=== PATIENT | female | born 1975 | race Caucasian/White ===

== ENCOUNTER → 2017-02-13 | Outpatient (CLI) | payer BC | END | disposition home or self-care (01) | LOC: LABWHC1 12:32 | PROVIDERS: ATTEND Pediatrics | DX: K90.0 Celiac disease (principal); E72.12 Methylenetetrahydrofolate reductase deficiency; R53.83 Other fatigue | CPT/HCPCS: 36415; 83921 ==

== ENCOUNTER → 2017-12-10 | Outpatient (CLI) | payer BC ==
--- NOTE | 2017-12-11 11:14 | MM ---
Reason for exam: screening (asymptomatic). Last mammogram was performed 3 years and 3 months ago. History: Took hormonal contraceptives for 3 years. Physical Findings: A clinical breast exam by your physician is recommended on an annual basis and results should be correlated with mammographic findings. MG 3D Screening Mammo W/Cad Bilateral CC and MLO view(s) were taken. Prior study comparison: August 30, 2014, bilateral MG diagnostic mammo w CAD EZNO. The breast tissue is extremely dense which could obscure a lesion on mammography. No significant changes when compared with prior studies. ASSESSMENT: Benign, BI-RAD 2 RECOMMENDATION: Routine screening mammogram of both breasts in 1 year.
== END | disposition home or self-care (01) ==
LOC: RADMAMWWP 08:30
PROVIDERS: ATTEND Obstetrics & Gynecology
DX: Z12.31 Encounter for screening mammogram for malignant neoplasm of breast (principal)
CPT/HCPCS: 77063; 77067

== ENCOUNTER → 2019-10-19 | Outpatient (CLI) | payer BC ==
--- NOTE | 2019-10-19 11:20 | MM ---
Reason for exam: clinical finding. Last mammogram was performed 1 year and 10 months ago. History: Benign cyst aspiration of the right breast, 2013. Took hormonal contraceptives for 3 years. Physical Findings: Nurse Summary: 1.5cm nodule in the left breast at 3 o'clock and a 1cm nodule in the left breast at 2 o'clock (nurse dw). MG 3D Diag Mammo W/Cad ENZO Bilateral CC and MLO view(s) were taken. Prior study comparison: December 10, 2017, bilateral MG 3d screening mammo w/cad. August 30, 2014, bilateral MG diagnostic mammo w CAD ENZO. The breast tissue is heterogeneously dense. This may lower the sensitivity of mammography. There are benign appearing round oval circumscribed bilateral masses throughout. Most mammographically compatible with cysts. Right ultrasound of 2013 demonstrated numerous cysts. No suspicious abnormality. These results were verbally communicated with the patient and result sheet given to the patient on 10/19/19. ASSESSMENT: Incomplete: need additional imaging evaluation, BI-RAD 0 RECOMMENDATION: Ultrasound of the left breast.
--- NOTE | 2019-10-19 11:22 | USB ---
Reason for exam: additional evaluation requested from abnormal screening. History: Benign cyst aspiration of the right breast, 2013. Took hormonal contraceptives for 3 years. US Breast Limited LT Left limited breast ultrasound including focal area of concern, retroareolar and axilla demonstrates a 0.5 x 0.5 x 0.5cm mixed lesion at 1 o'clock, a 1.3 x 1.2 x 1.5cm cystic lesion at 1 o'clock, a 1.0 x 0.8 x 1.1cm cystic lesion at 2 o'clock, a 2.1 x 2.2 x 1.8cm cystic lesion at 3 o'clock and a 0.9 x 0.5 x 0.9cm hypoechoic lesion at 3 o'clock, oval, smoothly marginated. These results were verbally communicated with the patient and result sheet given to the patient on 10/19/19. ASSESSMENT: Probably benign, BI-RAD 3 RECOMMENDATION: Ultrasound of the left breast in 6 months.
== END | disposition home or self-care (01) ==
LOC: RADMAMWWP 07:35
PROVIDERS: ATTEND Obstetrics & Gynecology
DX: N63.10 Unspecified lump in the right breast, unspecified quadrant (principal); N63.20 Unspecified lump in the left breast, unspecified quadrant; R92.8 Other abnormal and inconclusive findings on diagnostic imaging of breast
CPT/HCPCS: 77062; 77066

== ENCOUNTER 2021-04-16 06:44 | Emergency (ER) | payer BC ==
[2021-04-16 06:59] VITALS: RESP 18; TEMP 98
[2021-04-16 07:59] LABS: Appearance,Urine Clear (Clear); Bilirubin,Urine Negative (Negative); Blood,Urine Negative (Negative); Color,Urine Yellow; Glucose,Urine (UA) Negative (Negative); Ketones,Urine 1+ (Negative); Leukocyte Esterase,Urine Negative (Negative); Nitrite,Urine Negative (Negative); PH, Urine 6.5 (5.0-8.0); Protein,Urine Negative (Negative); Specific Gravity,Urine 1.003 (1.001-1.035); Urobilinogen,Urine <2.0 mg/dL (<2.0)
[2021-04-16 08:04] LABS: Basophils % (A) 0 %; Eosinophils # (A) 0.1 k/uL (0-0.7); Eosinophils % (A) 1 %; HCT 40.4 % (34.0-46.0); Lymphocytes # (A) 0.9 k/uL (1.0-4.8); Lymphocytes % (A) 10 %; MCH 30.2 pg (25.0-35.0); MCHC 34.6 g/dL (31.0-37.0); MCV 87.5 fL (80.0-100.0); Mean Platelet Volume 8.4; Monocytes # (A) 0.5 k/uL (0-1.0); Monocytes % (A) 5 %; Neutrophils # (A) 7.4 k/uL (1.3-7.7); Neutrophils % (A) 83 %; Platelet Count 197 k/uL (150-450); RBC 4.62 m/uL (3.80-5.40); WBC 8.9 k/uL (3.8-10.6)
[2021-04-16 08:09] LABS: ALT 13 U/L (4-34); AST 21 U/L (14-36); African American GFR (CKD) >90 (>60 ml/min/1.73 sqM); Alkaline Phosphatase 69 U/L (38-126); Amylase 58 U/L (30-110); Anion Gap 13 mmol/L; Blood Urea Nitrogen 8 mg/dL (7-17); Calcium 9.4 mg/dL (8.4-10.2); Carbon Dioxide 24 mmol/L (22-30); Chloride 105 mmol/L (98-107); Glucose 112 mg/dL (74-99); Lipase 62 U/L (23-300); Non-African American GFR(CKD) >90 (>60 ml/min/1.73 sqM); Potassium 3.5 mmol/L (3.5-5.1); Sodium 142 mmol/L (137-145); Total Bilirubin 0.9 mg/dL (0.2-1.3); Total Protein 8.6 g/dL (6.3-8.2)
--- NOTE | 2021-04-16 08:29 | CT ---
EXAMINATION TYPE: CT brain wo con DATE OF EXAM: 04/16/2021 COMPARISON: CT brain June 26, 2015 HISTORY: nausea, elevated blood pressure CT DLP: 1074.4 mGycm. Automated Exposure Control for Dose Reduction was Utilized. TECHNIQUE: CT scan of the head is performed without contrast. FINDINGS: There is no acute intracranial hemorrhage, mass effect, or midline shift identified. The ventricles and sulci are within normal limits in size. Villafuerte-white matter differentiation is maintain ed. The globes are intact and the visualized sinuses are clear. IMPRESSION: No acute intracranial hemorrhage or midline shift is seen. No significant change from pr ior.
--- NOTE | 2021-04-16 08:33 | XR ---
EXAMINATION TYPE: XR KUB DATE OF EXAM: 04/16/2021 8:26 AM CLINICAL HISTORY: Nausea and fatigue. Abdominal pain. TECHNIQUE: Two Upright KUB images of the abdomen are obtained. COMPARISON: None. FINDINGS: Gas is seen in nondistended stomach bubble. Scattered gas is seen in non-distended small bonifacio wel loops. Gas and fecal material is seen in non-distended colon. Scattered bilateral pelvic phleboli ths left greater than right. No free air. Lung bases are clear. IMPRESSION: Overall nonobstructive bowel gas pattern.
--- NOTE | 2021-04-16 09:09 | ED ---
Recheck HPI - General Chief Complaint: Recheck/Abnormal Lab/Rx Stated Complaint: Nausea, fatigue Time Seen by Provider: 04/16/21 07:02 Source: patient Mode of arrival: ambulatory Limitations: no limitations - History of Present Illness Initial Comments: 46-year-old female presenting for nausea fatigue. Patient states for months she has had nausea fatigue. She denies any other associated symptoms she denies chest pain jaw pain shortness of breath leg swelling back pain headaches vision changes weakness sensation deficits. Patient denies any vomiting diarrhea constipation or abdominal pain nekc pain rashes. Patient on arrival appears well nontoxic in no acute distress. - Related Data Home Medications Medication Instructions Recorded Confirmed Cholecalciferol [Vitamin D3 (25 25 mcg PO DAILY 04/16/21 04/16/21 Mcg = 1000 Iu)] Cranberry Fruit Extract [Cranberry] 500 mg PO DAILY 04/16/21 04/16/21 Garlic 1 tab PO DAILY 04/16/21 04/16/21 L.acidoph,Paracasei, B.lactis 1 cap PO DAILY 04/16/21 04/16/21 [Probiotic] Nitrofurantoin Monohyd/M-Cryst 100 mg PO BID 04/16/21 04/16/21 [Macrobid] Allergies Allergy/AdvReac Type Severity Reaction Status Date / Time fluconazole [From Diflucan] Allergy Dyspnea & Verified 04/16/21 08:45 Increased Heart Rate Review of Systems ROS Statement: Those systems with pertinent positive or pertinent negative responses have been documented in the HPI. ROS Other: All systems not noted in ROS Statement are negative. Past Medical History Past Medical History: Hypertension Additional Past Medical History / Comment(s): lyme disease (11/2014); migraines History of Any Multi-Drug Resistant Organisms: None Reported Past Surgical History: No Surgical Hx Reported Past Psychological History: No Psychological Hx Reported Smoking Status: Never smoker Past Alcohol Use History: None Reported Past Drug Use History: None Reported General Exam - General Exam Comments Initial Comments: General: The patient is awake and alert, in no distress Eye: Pupils are equal, round and reactive to light, extra-ocular movements are intact. No nystagmus. There is normal conjunctiva bilaterally. No signs of icterus. Ears, nose, mouth and throat: There are moist mucous membranes and no oral lesions. Neck: The neck is supple, there is no tenderness or JVD. Cardiovascular: There is a regular rate and rhythm. No murmur, rub or gallop is appreciated. Respiratory: Lungs are clear to auscultation, respirations are non-labored, breath sounds are equal. No wheezes, stridor, rales, or rhonchi. Gastrointestinal: Soft, non-distended, non-tender abdomen without masses or organomegaly noted. There is no rebound or guarding present. Musculoskeletal: Normal ROM, no tenderness. Strength 5/5. Sensation intact. Radial and DP pulses equal bilaterally 2+. Neurological: A&O x 3. CN II-XII intact grossly, There are no obvious motor or sensory deficits. Coordination appears grossly intact. Speech is normal. Skin: Skin is warm and dry and no rashes or lesions are noted. Psychiatric: Cooperative, appropriate mood & affect, normal judgment. Limitations: no limitations Course Vital Signs 04/16/21 06:54 Temperature 98 F Pulse Rate 104 H Respiratory 18 Rate Blood Pressure 162/95 O2 Sat by Pulse 100 Oximetry Medical Decision Making - Medical Decision Making Labs stable. Urine ketones but otherwise unremarkable. CT no signs of increased pressure. no hx of headaches, no focal neurological deficits. KUB unremarkable. EKG no acute findings. pt requesting merucry test due to her dentish suggseting it due to old mercury filling that is being removed. pt has no additional complaints. after discussing case with Reny who feel pt is stable for discharge with pcp f/u. - Lab Data Result diagrams: 04/16/21 07:23 04/16/21 07:23 Lab Results 04/16/21 04/16/21 04/16/21 Range/Units 07:23 07:23 07:23 WBC 8.9 (3.8-10.6) k/uL RBC 4.62 (3.80-5.40) m/uL Hgb 14.0 (11.4-16.0) gm/dL Hct 40.4 (34.0-46.0) % MCV 87.5 (80.0-100.0) fL MCH 30.2 (25.0-35.0) pg MCHC 34.6 (31.0-37.0) g/dL RDW 12.0 (11.5-15.5) % Plt Count 197 (150-450) k/uL MPV 8.4 Neutrophils % 83 % Lymphocytes % 10 % Monocytes % 5 % Eosinophils % 1 % Basophils % 0 % Neutrophils # 7.4 (1.3-7.7) k/uL Lymphocytes # 0.9 L (1.0-4.8) k/uL Monocytes # 0.5 (0-1.0) k/uL Eosinophils # 0.1 (0-0.7) k/uL Basophils # 0.0 (0-0.2) k/uL Sodium 142 (137-145) mmol/L Potassium 3.5 (3.5-5.1) mmol/L Chloride 105 (98-107) mmol/L Carbon Dioxide 24 (22-30) mmol/L Anion Gap 13 mmol/L BUN 8 (7-17) mg/dL Creatinine 0.55 (0.52-1.04) mg/dL Est GFR (CKD-EPI)AfAm >90 (>60 ml/min/1.73 sqM) Est GFR (CKD-EPI)NonAf >90 (>60 ml/min/1.73 sqM) Glucose 112 H (74-99) mg/dL Calcium 9.4 (8.4-10.2) mg/dL Total Bilirubin 0.9 (0.2-1.3) mg/dL AST 21 (14-36) U/L ALT 13 (4-34) U/L Alkaline Phosphatase 69 (38-126) U/L Troponin I (0.000-0.034) ng/mL Total Protein 8.6 H (6.3-8.2) g/dL Albumin 5.0 (3.5-5.0) g/dL Amylase 58 (30-110) U/L Lipase 62 (23-300) U/L Urine Color Yellow Urine Appearance Clear (Clear) Urine pH 6.5 (5.0-8.0) Ur Specific [place] 1.003 (1.001-1.035) Urine Protein Negative (Negative) Urine Glucose (UA) Negative (Negative) Urine Ketones 1+ H (Negative) Urine Blood Negative (Negative) Urine Nitrite Negative (Negative) Urine Bilirubin Negative (Negative) Urine Urobilinogen <2.0 (<2.0) mg/dL Ur Leukocyte Esterase Negative (Negative) 04/16/21 Range/Units 07:23 WBC (3.8-10.6) k/uL RBC (3.80-5.40) m/uL Hgb (11.4-16.0) gm/dL Hct (34.0-46.0) % MCV (80.0-100.0) fL MCH (25.0-35.0) pg MCHC (31.0-37.0) g/dL RDW (11.5-15.5) % Plt Count (150-450) k/uL MPV Neutrophils % % Lymphocytes % % Monocytes % % Eosinophils % % Basophils % % Neutrophils # (1.3-7.7) k/uL Lymphocytes # (1.0-4.8) k/uL Monocytes # (0-1.0) k/uL Eosinophils # (0-0.7) k/uL Basophils # (0-0.2) k/uL Sodium (137-145) mmol/L Potassium (3.5-5.1) mmol/L Chloride (98-107) mmol/L Carbon Dioxide (22-30) mmol/L Anion Gap mmol/L BUN (7-17) mg/dL Creatinine (0.52-1.04) mg/dL Est GFR (CKD-EPI)AfAm (>60 ml/min/1.73 sqM) Est GFR (CKD-EPI)NonAf (>60 ml/min/1.73 sqM) Glucose (74-99) mg/dL Calcium (8.4-10.2) mg/dL Total Bilirubin (0.2-1.3) mg/dL AST (14-36) U/L ALT (4-34) U/L Alkaline Phosphatase (38-126) U/L Troponin I <0.012 (0.000-0.034) ng/mL Total Protein (6.3-8.2) g/dL Albumin (3.5-5.0) g/dL Amylase (30-110) U/L Lipase (23-300) U/L Urine Color Urine Appearance (Clear) Urine pH (5.0-8.0) Ur Specific [place] (1.001-1.035) Urine Protein (Negative) Urine Glucose (UA) (Negative) Urine Ketones (Negative) Urine Blood (Negative) Urine Nitrite (Negative) Urine Bilirubin (Negative) Urine Urobilinogen (<2.0) mg/dL Ur Leukocyte Esterase (Negative) Disposition Clinical Impression: Nausea Disposition: HOME SELF-CARE Condition: Good Instructions (If sedation given, give patient instructions): Acute Nausea and Vomiting (ED) Additional Instructions: Please use medication as discussed. Please follow-up with family doctor in the next 2 days of symptoms have not improved. Please return to emergency room if the symptoms increase or worsen or for any other concerns. Is patient prescribed a controlled substance at d/c from ED?: No Referrals: Miranda Lindo DO [Primary Care Provider] - 1-2 days Time of Disposition: 09:39
[2021-04-16 10:01] VITALS: BP 142/89; PULSE 96
[2021-04-18 22:15] LABS: Arsenic Whole Blood <3 mcg/L (< 23); Mercury Whole Blood <2 mcg/L (< 11)
== END 2021-04-16 09:55 | disposition home or self-care (01) ==
LOC: EC 06:44
DX: R11.0 Nausea (principal); R53.83 Other fatigue; I10 Essential (primary) hypertension; Z88.3 Allergy status to other anti-infective agents
CPT/HCPCS: 36415; 70450; 74018; 80053; 81003; 82150; 82175; 82570; 83655; 83690; 83825; 84484; 85025; 93005; 99284

== ENCOUNTER → 2021-05-23 | Outpatient (CLI) | payer BC ==
--- NOTE | 2021-05-24 08:45 | EST ---
- Stress Test Note Stress Test Results/Findings: Exam Performed: stress test Exam Date: 05/23/21 Reason for Exam: ABN EKG HTN Height: 5 ft 6 in Weight: 135 kg Protocol: YANCY Stage: 3 Duration of Exercise: 7:00 Resting Heart Rate: 77 Resting Blood Pressure: 134/94 Maximum Achieved Heart Rate: 161 Maximum Achieved Blood Pressure: 197/115 85% PMHR: 149 100% PMHR: 175 METS: 8.5 Technologist Comment: Stress Test Results/Findings: Patient underwent exercise stress EKG with a Yancy protocol treadmill stress test. Patient exercised into Stage 3 for a total of 7 minutes reaching a total of 8.5 METS. Patient's maximum heart rate was 161 which represented 92 % age- predicted maximum heart rate. Stress EKG findings: At baseline patient's EKG showed normal sinus rhythm, normal axis, minimal 0.[address] depressions 3, aVF, V5, V6. At peak exercise, EKG showed frequent PVCs, accentuation of baseline EKG abnormalities with up to 1.[address] depression in the inferolateral leads which is nondiagnostic given baseline EKG abnormalities. Conclusions: 1. Nondiagnostic stress EKG given baseline EKG abnormalities with accentuation of ST depressions in the inferolateral leads. Would recommend a stress test with imaging modality if clinically indicated. 2. Good exercise capacity. MTDD
== END | disposition home or self-care (01) ==
LOC: RADNMMAIN 08:24
PROVIDERS: ATTEND Family Medicine
DX: R94.31 Abnormal electrocardiogram [ECG] [EKG] (principal); I10 Essential (primary) hypertension
CPT/HCPCS: 93017

== ENCOUNTER → 2021-06-20 | Outpatient (CLI) | payer BC ==
--- NOTE | 2021-06-20 10:48 | ECHOF ---
Referral Reason:I10 hypertension MEASUREMENTS -------- HEIGHT: 167.6 cm WEIGHT: 62.6 kg BP: RVIDd: 1.9 cm (< 3.3) IVSd: 0.9 cm (0.6 - 1.1) LVIDd: 3.8 cm (3.9 - 5.3) LVPWd: 1.2 cm (0.6 - 1.1) IVSs: 1.4 cm LVIDs: 1.7 cm LVPWs: 1.6 cm LAESV Index (A-L): 22.82 ml/m Ao Diam: 2.9 cm (2.0 - 3.7) AV Cusp: 1.8 cm (1.5 - 2.6) LA Diam: 2.2 cm (2.7 - 3.8) MV EXCURSION: 15.184 mm (> 18.000) MV EF SLOPE: 166 mm/s (70 - 150) EPSS: 0.6 cm MV E Gino: 0.88 m/s MV DecT: 207 ms MV A Gino: 0.67 m/s MV E/A Ratio: 1.31 RAP: 5.00 mmHg RVSP: 30.22 mmHg FINDINGS -------- This was a technically good study. The left ventricular size is normal. Left ventricular wall thickness is normal. Overall left vent ricular systolic function is normal with, an EF between 55 - 60 %. The diastolic filling pattern is normal for the age of the patient 9.99. The right ventricle is normal in size. The left atrial size is normal. Normal LA size by volume 22+/-6 ml/m2. The right atrial size is normal. Eustachian valve seen in the right atrium (normal finding). Interatrial and interventricular septum intact. The aortic valve is trileaflet and appears structurally normal. The mitral valve is normal. Mild mitral regurgitation is present. The tricuspid valve appears structurally normal. Mild tricuspid regurgitation present. Right vent ricular systolic pressure is normal at < 35 mmHg. There is no pulmonic regurgitation present. The aortic root size is normal. Normal inferior vena cava with normal inspiratory collapse consistent with estimated right atrial pre ssure of 5 mmHg. There is no pericardial effusion. CONCLUSIONS -------- 1. The left ventricular size is normal. 2. Left ventricular wall thickness is normal. 3. Overall left ventricular systolic function is normal with, an EF between 55 - 60 %. 4. The diastolic filling pattern is normal for the age of the patient 9.99 5. Eustachian valve seen in the right atrium (normal finding). 6. Mild mitral regurgitation is present. 7. Mild tricuspid regurgitation present. 8. There is no pericardial effusion. SHAKER SCREEN OPERATOR: Sandra Pedroza RDCS
== END | disposition home or self-care (01) ==
LOC: RADECHMAIN 08:03
PROVIDERS: ATTEND Family Medicine
DX: I08.1 Rheumatic disorders of both mitral and tricuspid valves (principal)
CPT/HCPCS: 93306

== ENCOUNTER → 2021-09-18 | Outpatient (CLI) | payer BC ==
--- NOTE | 2021-09-19 09:45 | MM ---
Reason for exam: screening (asymptomatic). Last mammogram was performed 1 year and 11 months ago. History: Benign cyst aspiration of the right breast, 2013. Took hormonal contraceptives for 3 years. Physical Findings: A clinical breast exam by your physician is recommended on an annual basis and results should be correlated with mammographic findings. MG 3D Screening Mammo W/Cad Bilateral CC and MLO view(s) were taken. Prior study comparison: October 19, 2019, bilateral MG 3d diag mammo w/cad ENZO. December 10, 2017, bilateral MG 3d screening mammo w/cad. The breast tissue is heterogeneously dense. This may lower the sensitivity of mammography. Stable benign calcifications. Increasing mass central right breast. ASSESSMENT: Incomplete: need additional imaging evaluation, BI-RAD 0 RECOMMENDATION: Ultrasound of the right breast. [facility] will attempt to contact patient to return for ultrasound.
== END | disposition home or self-care (01) ==
LOC: RADMAMWWP 11:15
PROVIDERS: ATTEND Obstetrics & Gynecology
DX: Z12.31 Encounter for screening mammogram for malignant neoplasm of breast (principal)
CPT/HCPCS: 77063; 77067

== ENCOUNTER → 2021-10-04 | Outpatient (CLI) | payer BC ==
--- NOTE | 2021-10-04 11:31 | USB ---
Reason for exam: additional evaluation requested from abnormal screening. History: Benign cyst aspiration of the right breast, 2013. Took hormonal contraceptives for 3 years. Physical Findings: Nurse Summary: 1.5cm round nodule in the right breast at 9 o'clock (nurse rj). US Breast Workup Limited RT Right limited breast ultrasound including focal area of concern, retroareolar and axilla demonstrates a 2.4 x 2.2 x 1.7cm mixed lesion at 9 o'clock BB, cyst aspiration recommended, a 1.5 x 1.6 x 0.8cm cystic lesion at 9 o'clock and a 0.8 x 0.8 x 0.4cm cystic lesion at 12 o'clock. These results were verbally communicated with the patient and result sheet given to the patient on 10/04/21. ASSESSMENT: Suspicious, BI-RAD 4 RECOMMENDATION: Aspiration of the right breast. (9 o'clock) Called Dr. Carbone's office with mammographic findings and patient is requesting to call Dr. Negro on her own to book surgical consultation. PRELIMINARY REPORT CALLED AND FAXED TO DR. NEGRO ON 10/03/21.
== END | disposition home or self-care (01) ==
LOC: RADUSWWP 08:43
PROVIDERS: ATTEND Obstetrics & Gynecology
DX: N60.01 Solitary cyst of right breast (principal)

== ENCOUNTER → 2021-12-18 | Day surgery (SDC) | payer BC ==
[2021-12-18 13:08] VITALS: RESP 16; TEMP 98.1
--- NOTE | 2021-12-18 14:14 | USB ---
EXAMINATION TYPE: US breast aspiration single RT DATE OF EXAM: 12/18/2021 CLINICAL HISTORY: N60.01 CYST OF RT BREAST. TECHNIQUE: Ultrasound guided vaccuum assisted cyst aspiration of right breast. COMPARISON: 10/04/2021 FINDINGS: The ultrasound guided cyst aspiration procedure was explained to the patient. The risks, b enefits, alternatives were discussed. An informed consent was then obtained. Discussion included ris k of infection, bleeding. Discussion over the titanium clip placement was performed, patient refused clip placement for the procedure after discussion. Timeout was performed. The patient was placed in supine positioning for imaging and for the procedure. The overlying skin w as prepped with betadine and sterilely draped in usual sterile fashion. Lidocaine 1% was used as ane sthetic into the skin and deeper breast tissue up to area of concern in the breast. Under ultrasound guidance, an 18-gauge needle was advanced into the complex cyst. Cyst aspiration was performed with easy complete collapse of the cyst. Yellow semithick fluid was obtained. Syringe was labeled with the patient's name and transferred to pathology for additional evaluation. An additional image was obtained with the needle in position and an adjacent cyst for location identification. Good hemostasis was obtained with direct pressure. Discharge instructions were discussed with the manjula cottrell. The patient will follow up with the referring physician for results. Postprocedure mammogram: No clip placed, no mammogram performed at this time. The patient tolerated the procedure well without any immediate complication. The patient was dischar ged to home in stable condition. IMPRESSION: 1. Successful ultrasound guided cyst aspiration right breast 9:00 position. Recommendations: 1. Recommendations are pending pathology results.
[2021-12-18 14:22] VITALS: BP 156/88; PULSE 76
== END | disposition home or self-care (01) ==
LOC: RADUSWWP 12:48
PROVIDERS: ATTEND Surgery
DX: N60.01 Solitary cyst of right breast (principal)
CPT/HCPCS: 76942; 19000; J2001

== ENCOUNTER → 2022-08-21 | Outpatient (CLI) | payer BC ==
--- NOTE | 2022-08-21 09:07 | USB ---
Reason for Exam: Clinical finding. Patient History: Menarche at age 12. First Full-Term at age 31. Late child-bearing (after 31). Patient used Hormonal Contraceptives for 3 years. 2013, Benign Cyst Aspiration on the right side. 12/18/2021, Benign Cyst Aspiration on the right side. Risk Values: Karime 5 year model risk: 1.3%. NCI Lifetime model risk: 14.0%. Technique: Method: Whole Breast Handheld. Prior Study Comparison: 12/10/2017 Bilateral Screening Mammogram, [facility]. 10/19/2019 Bilateral Diagnostic Mammogram, [facility]. 09/18/2021 Bilateral Screening Mammogram, [facility]. Findings: The whole breast of the left breast, the axilla of the left breast and the retroareolar of the left breast were scanned. . A left breast ultrasound including scanning of the subareolar region and axilla. Extensive fibrocystic changes present throughout. Largest cyst is complicated with some septation and multilocularity measuring up to 5.2 cm located at 12:00. Additional scattered smaller cysts are present including a 1.9 cm cyst at 5:00, 1 cm cyst at 10:00. Numerous additional scattered smaller cysts are present throughout the breast. There is a background of dense tissues. No axillary lymphadenopathy or duct ectasia. Overall Assessment: Probably benign, BI-RAD 3 Management: Diagnostic Mammogram of both breasts in 1 month. In time for the patient's annual exam. Given symptomatic breast cysts, percutaneous aspiration can be performed prior to the patient's mammogram. Electronically signed and approved by: Franc Duran M.D. Radiologist
== END | disposition home or self-care (01) ==
LOC: RADUSWWP 08:26
PROVIDERS: ATTEND Surgery
DX: N60.02 Solitary cyst of left breast (principal); Z98.890 Other specified postprocedural states

== ENCOUNTER → 2022-08-27 | Day surgery (SDC) | payer BC ==
--- NOTE | 2022-09-02 09:31 | USB ---
Risk Values: Karime 5 year model risk: 1.3%. NCI Lifetime model risk: 14.0%. Prior Study Comparison: 12/10/2017 Bilateral Screening Mammogram, [facility]. 10/19/2019 Bilateral Diagnostic Mammogram, [facility]. 09/18/2021 Bilateral Screening Mammogram, [facility]. Pathology Description: Location: 12 o'clock. The procedure of ultrasound guided fine-needle aspiration and/or core biopsy was explained to the patient. Benefits, alternatives, and risks were discussed. An informed consent was then obtained. The patient was placed in supine positioning for imaging and for the procedure. Preprocedure ultrasound redemonstrates a large thin-walled cyst with lobulated margins and thin septa at 12:00 position 1 cm distance from nipple. The overlying skin was prepped and draped in usual sterile fashion. Lidocaine is used as anesthetic into the skin and subcutaneous tissue up to area of concern in the left breast. Under ultrasound guidance, an 18-gauge needle was used to aspirate roughly 12 cc of dark-colored fluid. After aspiration there is persistent irregular hypoechoic area at this level. Patient had stated she had pain and bruising after aspiration in office. It was chosen to then biopsy this area also given finding of dark possible blood component to the fluid collection. A vacuum assisted biopsy gun device was used to obtain 4 core samples. Several biopsies were fragmented. Patient did not want biopsy clip. Despite further talking with patient could not convinced to get biopsy clip. Irregularity area is visualized under ultrasound so biopsy clip is deferred. The patient tolerated the procedure well without any immediate complication. The patient was kept in the radiology department for short stay after the procedure and then discharged home in stable condition. Impression: Successful, uncomplicated ultrasound guided fine-needle aspiration and/or core biopsy of area of concern in the left breast, full pathology results to follow. Intermediate index of suspicion noted at time of procedure. Pathology Results: Result: Benign, Fibrocystic change. LEFT BREAST, TWELVE O'CLOCK, FINE NEEDLE ASPIRATE: Degenerated cellular material and foamy histiocytes in a background of blood and a minute fragment of benign breast parenchyma with adenosis. Features consistent with cyst contents/fibrocystic changes. LEFT BREAST, TWELVE O'CLOCK, ULTRASOUND GUIDED NEEDLE CORE BIOPSY: Scar/fibrosis and fibrocystic changes including rare microcalcifications. Negative for malignancy. Pathology Description: Location: 12 o'clock. Needle Type: Celero Cores: 4 Gauge: 12 Overall Assessment: Benign Management: Diagnostic Breast Ultrasound of the left breast. Electronically signed and approved by: Edwin Sahu M.D.
== END ==
LOC: RADUSWWP 10:01
PROVIDERS: ATTEND Surgery
DX: N60.32 Fibrosclerosis of left breast (principal)
CPT/HCPCS: 76942; 88173; 88305

== ENCOUNTER → 2023-05-25 | Outpatient (CLI) | payer BC ==
[2023-05-25 16:40] LABS: HCT 42.2 % (37.2-46.3); MCH 27.9 pg (27.0-32.0); MCHC 30.8 d/dL (32.0-37.0); MCV 90.6 FL (80.0-97.0); Mean Platelet Volume 12.3 FL (9.5-12.2); NRBC Per 100 WBC 0 X 10*3/uL (0.00-0.01); Platelet Count 191 X 10*3/uL (140-440); RBC 4.66 X 10*6/uL (4.10-5.20); RDW 12.4 % (11.5-14.5); WBC 6.98 X 10*3/uL (4.50-10.00)
[2023-05-25 16:52] LABS: Erythrocyte Sedimentation Rate 11 mm/Hr (0-20)
[2023-05-25 16:59] LABS: BUN/Creat Ratio 12.14 Ratio (12.00-20.00); Blood Urea Nitrogen 8.5 mg/dL (9.0-27.0); C Reactive Protein <0.30 mg/dL (0.00-0.80); Glucose 101 mg/dL (70-110); Iron 72 UG/DL (50-170); Magnesium 2.2 mg/dL (1.5-2.4); Rheumatoid Factor, Qnt <15 IU/mL (0-15)
[2023-05-25 17:00] LABS: ALT 13 U/L (8-44); AST 15 U/L (13-35); Albumin 4.7 d/dL (3.8-4.9); Albumin/Globulin Ratio 1.52 Ratio (1.60-3.17); Alkaline Phosphatase 75 U/L (41-126); Calcium 9.9 mg/dL (8.7-10.3); Carbon Dioxide 25.2 mmol/L (21.6-31.8); Chloride 104 mmol/L (96-109); Globulin 3.1 d/dL (1.6-3.3); Potassium 4.6 mmol/L (3.5-5.5); Sodium 142 mmol/L (135-145); Total Bilirubin 0.5 mg/dL (0.3-1.2); Total Protein 7.8 d/dL (6.2-8.2)
== END | disposition home or self-care (01) ==
LOC: LABWHC1 07:40
PROVIDERS: ATTEND Family Medicine
DX: Z13.220 Encounter for screening for lipoid disorders (principal); E04.9 Nontoxic goiter, unspecified; I10 Essential (primary) hypertension; E55.9 Vitamin D deficiency, unspecified; A69.20 Lyme disease, unspecified; M25.60 Stiffness of unspecified joint, not elsewhere classified; R53.83 Other fatigue; R73.01 Impaired fasting glucose
CPT/HCPCS: 36415; 80053; 82306; 83036; 83540; 83735; 85027; 85652; 86038; 86140; 86431; 86618

== ENCOUNTER → 2024-03-21 | Outpatient (CLI) | payer BC ==
--- NOTE | 2024-03-21 10:45 | USB ---
Reason for Exam: Clinical finding. Patient History: Menarche at age 12. First Full-Term at age 31. Late child-bearing (after 31). Patient used Hormonal Contraceptives for 3 years. 08/27/2022, Benign US breast aspiration single LT on the left side. 08/27/2022, US biopsy breast VAD LT on the Left side. 2013, Benign Cyst Aspiration on the right side. 12/18/2021, Benign Cyst Aspiration on the right side. Risk Values: Karime 5 year model risk: 1.8%. NCI Lifetime model risk: 16.1%. Technique: Method: Targeted. Prior Study Comparison: 12/10/2017 Bilateral Screening Mammogram, [facility]. 10/19/2019 Bilateral Diagnostic Mammogram, [facility]. 09/18/2021 Bilateral Screening Mammogram, [facility]. Findings: The lateral section of the breast of the left breast, the lower section of the breast of the left breast, the axilla of the left breast and the retroareolar of the left breast were scanned. Simple cyst noted at the left 2:00 position 4 cm from the nipple measuring 2.6 x 1.6 cm. Additional simple cyst at the left 5:00 position 5 cm from the nipple measuring 1.1 x 0.8 cm.. Solid mass is detected. Overall Assessment: Benign, BI-RAD 2 Management: Screening Mammogram of both breasts in 1 year. A clinical breast exam by your physician is recommended on an annual basis and results should be correlated with mammographic findings. This exam should not preclude additional follow-up of suspicious palpable abnormalities. Results were given to the patient verbally at the time of exam. Electronically signed and approved by: Tay Clemens M.D. Radiologis
== END | disposition home or self-care (01) ==
LOC: RADUSWWP 09:30
PROVIDERS: ATTEND Family Medicine
DX: N60.09 Solitary cyst of unspecified breast (principal); N64.4 Mastodynia

== ENCOUNTER 2024-03-30 12:21 | Emergency (ER) | payer BC ==
--- NOTE | 2024-03-30 12:48 | ED ---
Recheck HPI - General Chief Complaint: Recheck/Abnormal Lab/Rx Stated Complaint: Hypertension Time Seen by Provider: 03/30/24 12:42 Source: patient, RN notes reviewed, old records reviewed Mode of arrival: ambulatory Limitations: no limitations - History of Present Illness Initial Comments: This is a 41-year-old female to the ER today for evaluation of hypertension. Patient has had mild issues with hypertensive in the past has gone on medications has come off medications due to fluctuating blood pressures this was probably over the last 5 years, patient is doing outpatient follow-up and was having a stress test today due to family history of heart disease and asymptomatic stress test no history of chest pain no history of shortness of breath no exertional exertional exertional shortness of breath and patient showed up for stress test today and blood pressure was elevated, patient was sent to the emergency department from outpatient testing for evaluation of elevated blood pressure. Patient here in the ER has no headache chest pain shortness of breath or abdominal pain no neurological symptoms MD Complaint: abnormal lab (Abnormal blood pressure) -: unknown Returns Today for: Called Because of Abnormal Lab/Test (Abnormal blood pressure no symptoms) Symptoms Since Prior Visit: no new symptoms Context: planned re-check Associated Symptoms: none - Related Data Home Medications Medication Instructions Recorded Confirmed L.acidoph,Paracasei, B.lactis 1 cap PO DAILY 04/16/21 03/30/24 [Probiotic] Elderberry Fruit [Elderberry] 350 mg PO DAILY 03/30/24 03/30/24 Vitamin C(Unknown Dose) 1 tab PO DAILY 03/30/24 03/30/24 Previous Rx's Medication Instructions Recorded lisinopriL [Prinivil] 10 mg PO DAILY #60 tab 03/30/24 Allergies Allergy/AdvReac Type Severity Reaction Status Date / Time fluconazole [From Diflucan] Allergy Dyspnea & Verified 03/30/24 13:33 Increased Heart Rate Review of Systems ROS Statement: Those systems with pertinent positive or pertinent negative responses have been documented in the HPI. ROS Other: All systems not noted in ROS Statement are negative. Past Medical History Past Medical History: Hypertension Additional Past Medical History / Comment(s): lyme disease (11/2014); migraines History of Any Multi-Drug Resistant Organisms: None Reported Past Surgical History: No Surgical Hx Reported Additional Past Surgical History / Comment(s): wisdom teeth removed Past Anesthesia/Blood Transfusion Reactions: No Reported Reaction Past Psychological History: No Psychological Hx Reported Smoking Status: Never smoker Past Drug Use History: None Reported - Past Family History Father Family Medical History: Hypertension Additional Family Medical History / Comment(s): peripheral artery disease General Exam Limitations: no limitations General appearance: alert, in no apparent distress, anxious Head exam: Present: atraumatic, normocephalic, normal inspection Eye exam: Present: normal appearance, PERRL, EOMI. Absent: scleral icterus, conjunctival injection, periorbital swelling ENT exam: Present: normal exam, mucous membranes moist Neck exam: Present: normal inspection. Absent: tenderness, meningismus, lymphadenopathy Respiratory exam: Present: normal lung sounds bilaterally. Absent: respiratory distress, wheezes, rales, rhonchi, stridor Cardiovascular Exam: Present: regular rate, normal rhythm, normal heart sounds. Absent: systolic murmur, diastolic murmur, rubs, gallop, clicks GI/Abdominal exam: Present: soft, normal bowel sounds. Absent: distended, tenderness, guarding, rebound, rigid Extremities exam: Present: normal inspection, full ROM, normal capillary refill. Absent: tenderness, pedal edema, joint swelling, calf tenderness Back exam: Present: normal inspection Neurological exam: Present: alert, oriented X3, CN II-XII intact Psychiatric exam: Present: normal affect, normal mood Skin exam: Present: warm, dry, intact, normal color. Absent: rash Course Vital Signs 03/30/24 03/30/24 12:28 14:20 Temperature 97.5 F L Pulse Rate 82 75 Respiratory 18 18 Rate Blood Pressure 195/99 175/93 O2 Sat by Pulse 100 99 Oximetry - Reevaluation(s) Reevaluation #1: 03/30/24 13:31 Medical record is reviewed Reevaluation #2: 03/30/24 13:31 Patient symptoms are unchanged, remains asymptomatic Reevaluation #3: 03/30/24 13:32 patient informed of results and questions answered Reevaluation #4: Was pt. sent in by a medical professional or institution (, PA, WHEAT INSPECTOR, urgent care, hospital, or senior living...) When possible be specific @ -no Did you speak to anyone other than the patient for history (EMS, parent, family, police, friend...)? What history was obtained from this source @ -no Did you review nursing and triage notes (agree or disagree)? Why? @ -agree Are old charts reviewed (outside hosp., previous admission, EMS record, old EKG, old radiological studies, urgent care reports/EKG's, senior living records)? Report findings @ -yes Differential Diagnosis (chest pain, altered mental status, abdominal pain women, abdominal pain men, vaginal bleeding, weakness, fever, dyspnea, syncope, headache, dizziness, GI bleed, back pain, seizure, CVA, palpatations, mental health, musculoskeletal)? @ -prior EKG interpreted by me (3pts min.). @ -yes X-rays interpreted by me (1pt min.). @ -no CT interpreted by me (1pt min.). @ -no U/S interpreted by me (1pt. min.). @ -no What testing was considered but not performed or refused? (CT, X-rays, U/S, labs)? Why? @ -none What meds were considered but not given or refused? Why? @ -none Did you discuss the management of the patient with other professionals (professionals i.e. , PA, WHEAT INSPECTOR, lab, RT, psych nurse, aids social worker, pole peeling machine operator, teacher, preventive medicine officer, machine adjuster leader case trim)? Give summary @ -no Was smoking cessation discussed for >3mins.? @ -no Was critical care preformed (if so, how long)? @ -no Were there social determinants of health that impacted care today? How? (Homelessness, low income, unemployed, alcoholism, drug addiction, transportation, low edu. Level, literacy, decrease access to med. care, nursing home, rehab)? @ -none Was there de-escalation of care discussed even if they declined (Discuss DNR or withdrawal of care, Hospice)? DNR status @ -no What co-morbidities impacted this encounter? (DM, HTN, Smoking, COPD, CAD, Cancer, CVA, ARF, Chemo, Hep., AIDS, mental health diagnosis, sleep apnea, morbid obesity)? @ -none Was patient admitted / discharged? Hospital course, mention meds given and route, prescriptions, significant lab abnormalities, going to OR and other pertinent info. @ - 49 female to the ED complaining of hypertension new diagnosis of hypertension will start on antihypertensives and can be discharged home Discharge Undiagnosed new problem with uncertain prognosis? @ -no Drug Therapy requiring intensive monitoring for toxicity (Heparin, Nitro, Insulin, Cardizem)? @ -no Were any procedures done? @ -no Diagnosis/symptom? @ -New diagnosis hypertension Acute, or Chronic, or Acute on Chronic? @ -Acute Uncomplicated (without systemic symptoms) or Complicated (systemic symptoms)? @ -Complicated Side effects of treatment? @ -no Exacerbation, Progression, or Severe Exacerbation? @ -exacerbation Poses a threat to life or bodily function? How? (Chest pain, USA, NC, pneumonia, PE, COPD, DKA, ARF, appy, cholecystitis, CVA, Diverticulitis, Homicidal, Suicidal, threat to staff... and all critical care pts) @ -yes with abnormal vital signs Medical Decision Making - Medical Decision Making 49 female to the ED complaining of hypertension new diagnosis of hypertension will start on antihypertensives and can be discharged home - EKG Data -: EKG Interpreted by Me (EKG is sinus 78 AK 126 QRS 79 QTc 419) Disposition Clinical Impression: Hypertension Disposition: HOME SELF-CARE Condition: Fair Instructions (If sedation given, give patient instructions): Hypertension (ED) Prescriptions: lisinopriL [Prinivil] 10 mg PO DAILY #60 tab Is patient prescribed a controlled substance at d/c from ED?: No Referrals: Nadiya Bower NPC [Primary Care Provider] - 1-2 days Time of Disposition: 13:30
[2024-03-30] MEDS: lisinopriL 10 MG TAB PO STA (13:41)
[2024-03-30] MEDS: cloNIDine HCL 0.1 MG TAB PO STA (13:42)
[2024-03-30 14:17] VITALS: RESP 18; TEMP 97.5
[2024-03-30 15:11] VITALS: BP 175/93; PULSE 75
== END 2024-03-30 14:23 | disposition home or self-care (01) ==
LOC: EC 12:21
DX: I10 Essential (primary) hypertension (principal); Z88.3 Allergy status to other anti-infective agents
CPT/HCPCS: 99283

== ENCOUNTER → 2024-03-30 | Outpatient (CLI) | payer BC ==
--- NOTE | 2024-03-30 12:03 | CA ---
Transthoracic Echo Report Name: Radha Mcleod Age: 49 Gender: F : 1975 Exam Date: 03/30/2024 08:59 Exam Location: [facility] Ht (in): 65 Wt (lb): 144 Ordering Physician: Virgil Lindo MD Attending/Referring Phys: Nadiya Bower NPC Chute Feeder Chayito Sneed RDCS Procedure CPT: Indications: I08.9 RHEUAMTIC VALVE I45.10 RIGHT BUNDLE-BRANCH B Cardiac Hx: Technical Quality: Fair Contrast 1: Total Dose (mL): Contrast 2: Total Dose (mL): MEASUREMENTS (Male / Female) Normal Values 2D ECHO LV Diastolic Diameter PLAX 3.9 cm 4.2 - 5.9 / 3.9 - 5.3 cm LV Systolic Diameter PLAX 2.3 cm IVS Diastolic Thickness 1.4 cm 0.6 - 1.0 / 0.6 - 0.9 cm LVPW Diastolic Thickness 1.4 cm 0.6 - 1.0 / 0.6 - 0.9 cm LV Relative Wall Thickness 0.7 RV Internal Dim ED PLAX 3.3 cm LA Volume 57.5 cm??? 18 - 58 / 22 - 52 cm??? LA Volume Index 33.1 cm???/m??? 16 - 28 cm???/m??? M-MODE Aortic Root Diameter MM 3.3 cm LA Systolic Diameter MM 2.9 cm LA Ao Ratio MM 0.9 AV Cusp Separation MM 1.6 cm DOPPLER AV Peak Velocity 140.7 cm/s AV Peak Gradient 7.9 mmHg AV Mean Velocity 100.2 cm/s AV Mean Gradient 4.6 mmHg AV Velocity Time Integral 27.5 cm LVOT Peak Velocity 119.2 cm/s LVOT Peak Gradient 5.7 mmHg LVOT Velocity Time Integral 23.9 cm MV Area PHT 5.0 cm??? Mitral E Point Velocity 64.1 cm/s Mitral A Point Velocity 72.2 cm/s Mitral E to A Ratio 0.9 MV Deceleration Time 151.8 ms MV E' Velocity 8.0 cm/s Mitral E to MV E' Ratio 8.0 TR Peak Velocity 192.9 cm/s TR Peak Gradient 14.9 mmHg Right Ventricular Systolic Press 19.2 mmHg FINDINGS Left Ventricle Moderately increased left ventricular wall thickness. Grade 1 diastolic dysfunction. Left ventricular cavity size normal. Normal left ventricular systolic function with no obvious regional wall motion abnormalities. Left ventricular ejection fraction is estimated at 55-60 %. Right Ventricle Normal right ventricular size and function. Right ventricular systolic pressure within normal limits. Right Atrium Normal right atrial size. Left Atrium Mildly increased left atrial volume. Mitral Valve Structurally normal mitral valve. No mitral stenosis. Mild mitral regurgitation. Aortic Valve Trileaflet aortic valve. No aortic valve stenosis or regurgitation. Tricuspid Valve Structurally normal tricuspid valve. Mild tricuspid regurgitation. Pulmonic Valve Structurally normal pulmonic valve. Trace pulmonic regurgitation. Pericardium No pericardial effusion. Aorta Normal size aortic root and proximal ascending aorta. CONCLUSIONS Previewed by: Dr. Guero Rodriguez MD (Electronically Signed) Final Date: 30 Mar 2024 12:02
--- NOTE | 2024-03-30 12:57 | NM ---
EXAMINATION TYPE: NM myocardial SPECT single DATE OF EXAM: 03/30/2024 COMPARISON: NONE CLINICAL INDICATION: Female, 49 years old with history of I08.9 RHEUAMTIC VALVE I45.10 RIGHT BUNDLE-B RANCH B; Following administration of 8.47 mCi Tc 99m Sestamibi. Images obtained 45 minutes post injection. FINDINGS: Calculated ejection fraction is 66%. Single resting images demonstrate. The patient's blood pressure was elevated and the stress portion of the exam was not performed. IMPRESSION: Ejection fraction 66%.
== END | disposition home or self-care (01) ==
LOC: RADNMMAIN 08:36
PROVIDERS: ATTEND Family Medicine
DX: I08.9 Rheumatic multiple valve disease, unspecified (principal); I45.10 Unspecified right bundle-branch block
CPT/HCPCS: 93306; 78451; A9500

== ENCOUNTER → 2024-04-19 | Outpatient (CLI) | payer BC ==
--- NOTE | 2024-04-19 13:29 | CA ---
Exercise Stress Test Report Name: Radha Mcleod Exam Date: 04/19/2024 08:52 Exam Location: [facility] Ht (in): 65 Wt (lb): 144 BSA: 1.72 Ordering Phys: Virgil Lindo MD Referring Phys: Nadiya Bower [facility] Technologist: Julia Laurent RDCS Age: 49 Gender: F : 1975 Procedure CPT: Indications: R93.1 ABNORMAL FINDINGS ON DX IMAGING OF HEART AND ICD-10 Codes: Patient History: PALP, HTN, FAMILY HX Medications: LISINOPRIL, SUPPLEMENTS Meds past 24 hrs: Pretest Chest Pain: STRESS TEST Mario Protocol Exercise Duration (min:sec): 07:[address] Depressions (mm): Angina Score: Somers Score: Resting HR (bpm): 71 Peak HR (bpm): 155 Resting BP (mmHg): 136 / 94 Peak BP (mmHg): 218 / 87 MPHR: 172 Target HR: 146 % MPHR: 90 METS: 8.9 Total Dose: Peak Dose: Atropine: Double Product: 79925 BP Response: Stress Termination: Reached target heart rate Stress Symptoms: No chest pain or symptoms Stress Summary: ECG ANALYSIS Resting ECG: Stress ECG: CONCLUSIONS Patient underwent exercise stress EKG with a Mario protocol treadmill stress test. Patient exercised into Stage 3 for a total of 7 minutes reaching a total of 8.9 METS. Patient's maximum heart rate was 155 which represented 90% age-predicted maximum heart rate. Stress EKG findings: At baseline patient's EKG showed normal sinus rhythm, normal axis, no significant ST or T wave abnormalities. At peak exercise, EKG showed no significant change from baseline. Conclusions: 1. Normal EKG response to exercise without evidence of inducible ischemia. 2. Fair exercise capacity. Dr. Raymond Ramos DO (Electronically Signed) Final Date: 19 Apr 2024 13:28
== END | disposition home or self-care (01) ==
LOC: RADNMMAIN 08:33
PROVIDERS: ATTEND Family Medicine
DX: R93.1 Abnormal findings on diagnostic imaging of heart and coronary circulation (principal)
CPT/HCPCS: 93017

== ENCOUNTER → 2024-05-24 | Outpatient (CLI) | payer BC | END | disposition home or self-care (01) | LOC: LABWHC1 12:46 | PROVIDERS: ATTEND Family Medicine | DX: I10 Essential (primary) hypertension (principal) | CPT/HCPCS: 36415; 83090 ==